=== PATIENT | female | born 1980 | race Caucasian/White ===

== ENCOUNTER → 2024-11-20 13:06 | Outpatient (REF) | payer BC, SELFPAY | LOC: EMG 13:06 | PROVIDERS: ATTENDING PHYSICIAN Nurse Practitioner Family; OTHER PHYSICIAN Family Medicine | DX: E11.40 Type 2 diabetes mellitus with diabetic neuropathy, unspecified (principal); R20.0 Anesthesia of skin | CPT/HCPCS: 95886; 95911 ==